=== PATIENT | female | born 1995 | race Caucasian/White ===

== ENCOUNTER 2017-03-29 10:30 | Inpatient (IN) | payer BC ==
[~2017-03-29] VITALS: Ht 162.6 cm; Wt 68.7 kg
--- NOTE | ~2017-03-29 | CON ---
PATIENT'S NAME: SAMI CAMPBELL [facility] AGE: 22 Y [address] ROOM: [place] [address] LOCATION: [facility] ADMIT DATE: 03/29/2017 Consultation DISCHARGE DATE: FAMILY PHYSICIAN: PHYSICIAN, UNKNOWN ATTENDING PHYSICIAN: Bonnie Silver REFERRING PHYSICIAN: Jorge James MD Consult for Dr. Silver. This 22-year-old young lady is referred for rehab evaluation. She is status post falling off a horse back and suffered L3 burst fracture with significant spinal canal cord stenosis and compromise. She had lumbar spine deformity at L3 with kyphosis. She did undergo on 03/30/2017 lumbar spine decompression at L3 and is now in TLSO. Alert and oriented and feels well. Rates her pain about 4-5 and sometimes she reached even lower at 3/10. Vital Signs: Blood pressure 123/68, temperature 98.5, pulse 112, respirations 20. She is 5 feet 4 inches tall and weighs 67.2 kg. She denies any loss of consciousness, no headache, and denied any shortness of breath at the present time. She saturates at room air. She takes supplemental oxygen for better saturation with nasal cannula, and she is not short of breath. Can comprehend and express without difficulty. Cranial nerves 2 through 12 are within normal limits. Can move all four, bilateral upper and lower extremities. Deep tendon reflexes are 1+ throughout. Babinski is equivocal. Muscle strength in bilateral upper is within normal limits, bilateral lower about 4/5. Sensation is within normal limits. Can control her bowel and bladder. She is on the following medications: 1. Phenergan. 2. Theravite. 3. NaCl 0.9%. 4. Dilaudid. 5. Narcan. 6. Valium. 7. Zofran. 8. Fleets. 9. Dulcolax suppository. 10. [place]. PATIENT'S NAME: SAMI CAMPBELL [facility] AGE: 22 Y [address] ROOM: [address] [address] LOCATION: [facility] ADMIT DATE: 03/29/2017 Consultation DISCHARGE DATE: FAMILY PHYSICIAN: PHYSICIAN, UNKNOWN ATTENDING PHYSICIAN: Obasi,Bonnie N 11. Lactated Ringer. She feels unsteady sometimes when up and around. Tolerated up to 50 feet of ambulation with front-wheeled walker, minimum assistance and cuing. I feel this young lady will benefit from intensive rehabilitation of about 2 weeks aiming thereafter to follow on her on an outpatient basis. She is weightbearing as tolerated per surgeon, will continue to have TEDS knee-high with Plexi-Pulses. She is at risk of falling. We will put on PT, please see the orders. I will try to get her to rehab as soon as she is okayed. All the above was explained to her in detail. She verbalized understanding, in agreement. MD MIKI CARDONA/modl /[id number] d: 03/31/172110 t: 04/01/17 0754, CONSULTATION REPORT
--- NOTE | ~2017-03-29 | DS ---
PATIENT'S NAME: SAMI CAMPBELL [facility] AGE: 22 Y [address] ROOM: [address] [address] LOCATION: [facility] ADMIT DATE: 03/29/2017 Discharge Summary DISCHARGE DATE: 04/06/2017 FAMILY PHYSICIAN: Physician, Unknown ATTENDING PHYSICIAN: Bonnie Silver REASON FOR ADMISSION: The patient is a 22-year-old female who fell off a horse and sustained a burst fracture of L3 vertebra. Neurologically, the patient had no deficits except for back pain. Imaging studies showed significant spinal compromise at the L3 level as a result of the burst fracture. TREATMENT RENDERED: The patient was taken to the operating room and underwent posterior instrumented fusion from L1-L5 as well as decompression of the spinal canal and resection of the retropulsed fragments at the L3 level. The O-arm and Stealth frameless stereotaxy were utilized for this procedure. The patient's surgery was uncomplicated. Her postoperative course was uneventful apart from expected pain. The patient did have some constipation and eventually was able to move her bowels. She had no bladder difficulty. She was well enough to go home and was discharged on April 06, 2017 with her mom to take care of her while she recovered. Her incision was healing well at the time of dismissal and her pain was controlled. FINAL DIAGNOSIS: L3 burst fracture with severe spinal canal compromise. MD REIJ SARAVIA/namrata /[id number] d: 04/27/17 0825 t: 04/27/17 1511, DISCHARGE SUMMARY
--- NOTE | ~2017-03-29 | OR ---
PATIENT'S NAME: SAMI CAMPBELL [facility] AGE: 22 Y [address] ROOM: [address] [address] LOCATION: [facility] ADMIT DATE: 03/29/2017 OR/Procedure Report DISCHARGE DATE: FAMILY PHYSICIAN: PHYSICIAN, UNKNOWN ATTENDING PHYSICIAN: Bonnie Silver SURGEON: Bonnie Silver MD HARDWARE ENGINEER: Yana Marrero. DATE OF PROCEDURE: 03/30/2017 Corrected patient account information 04/06/17 AO PREOPERATIVE DIAGNOSIS: Burst fracture of L3 vertebra with retropulsed fragment and severe cauda equina compression. POSTOPERATIVE DIAGNOSIS: Burst fracture of L3 vertebra with retropulsed fragment and severe cauda equina compression. PROCEDURES PERFORMED: 1. Laminectomy at L2-L3 with decompression of neural elements. 2. Decompression of neural elements with partial corpectomy of L3 vertebra. 3. Posterolateral fusion with morselized autograft and allograft bone from L1 to L5. 4. Instrumentation with pedicle screws at L1, L2, L4, and L5. 5. Use of frameless stereotaxy for intraoperative navigation. 6. Use of O-arm for intraoperative visualization. ANESTHESIA: General. ANESTHESIA PROVIDER: Paul Delgado MD HISTORY: This patient is a 22-year-old female who sustained an L3 burst fracture from a fall off a horse. Imaging studies showed severe spinal cord compression as a result of a retropulsed bone fragment from the L3 vertebra. The patient had no neurological deficits. Surgery was recommended. The above procedure along with benefits, risks, and alternatives were discussed with the patient and her mother. With the patient's consent, she was brought to the operating room for surgery. PROCEDURE IN DETAIL: In the operating room, the patient was placed in a supine position. Anesthesia was induced. She was intubated. She already had a Fermin catheter in place. The patient was then rolled to a prone position on a Johnathan table, taking care to protect all pressure points. The incision line was marked out in the midline of her lower back. The whole area was prepped and draped in a sterile fashion. Local anesthesia was infiltrated along the incision line. The #10 blade was used to open the incision, and self-retaining retractors were used to hold the skin open. The Bovie was used to deepen the incision until the tips of spinous processes became visible. PATIENT'S NAME: SAMI CAMPBELL [facility] AGE: 22 Y [address] ROOM: [address] [address] LOCATION: [facility] ADMIT DATE: 03/29/2017 OR/Procedure Report DISCHARGE DATE: FAMILY PHYSICIAN: PHYSICIAN, UNKNOWN ATTENDING PHYSICIAN: Bonnie Silver The paraspinous muscles were dissected off the spinous processes and laminae of L1, L2, L3, L4, and L5. The dissection continued laterally until the transverse processes of each of these vertebrae was visible. The L3 vertebra was visibly misaligned compared to the others. Intraoperative x-ray was obtained to confirm the level of the problem. This was also visible intraoperatively. Having completed the exposure, attention was directed to instrumentation. The O-arm was brought in, and an image was acquired. This image was combined with the image from the [employer] system. A 3-dimensional image of the patient's spine was then visible on the workstation. This 3-dimensional image was used for placement of the pedicle screws. The technique for placing the screws was the same for all the screws and will be described for one screw as representing the others. The entry point of the screw was verified with anatomical landmarks, i.e., the junction of the transverse process and the facet joints. This was confirmed with the frameless stereotactic system. A little commercial drone pilot hole was then drilled and then the pedicle finder was used to deepen the hole. The whole time, the trajectory was tracked using the frameless stereotactic system. Having drilled the hole, the ball-tipped probe was used to feel around the inside of the pedicle hole to ensure that it was not violated. Next, appropriate length of screw was placed inside the pedicle hole. This was done sequentially for all the pedicle screws at L1 and L2 and at L4 and L5. The L3 vertebra did not have any screws placed in it. Having completed the instrumentation, decompression was performed. Bilateral laminectomies were carried out at L2 and L3. There was a laminar fracture visible at L3. The canal was very stenotic. Upon completion of the laminectomy, the dura was still severely compressed by the retropulsed fragment. The nerve root retractor was used to pull the dura toward the midline gently, and the pieces of bone that were retropulsed were then identified using the frameless stereotactic system. These pieces of bone were drilled down on both sides to achieve further decompression. This was a partial corpectomy of the vertebra. At the end of the decompression, the dura was no longer compressed either from the retropulsed fragments or from the laminae. The bone that was harvested from the laminectomy was ground up and would subsequently be mixed with allograft bone for the posterolateral fusion. We then decorticated the transverse processes from L1 to L5 on both sides. The bone graft harvested from the laminectomy was reconstituted with demineralized bone matrix and bone chips. This mixture was placed bilaterally over the transverse processes which had been decorticated for the posterolateral fusion. PATIENT'S NAME: SAMI CAMPBELL [facility] AGE: 22 Y [address] ROOM: [id number] [place], [place] [address] LOCATION: [facility] ADMIT DATE: 03/29/2017 OR/Procedure Report DISCHARGE DATE: FAMILY PHYSICIAN: PHYSICIAN, UNKNOWN ATTENDING PHYSICIAN: Bonnie Silver Another image was obtained with the O-arm, and the screws were in very good position. Next, rods were placed over the screw heads, and set screws were used to tighten the rods inside the screws. Crosslinks were also attached. Final irrigation was performed, and hemostasis was achieved using fibrillar and cottonoids. The incision was then closed using appropriate suture materials. A sterile dressing was applied. The patient's blood, which had been harvested with a Cell Saver, was spun down and given back to her. The patient was then rolled back to supine position. Her anesthesia was reversed. She was extubated and taken to the recovery room to complete her recovery. I was present at and performed every aspect of this procedure, assisted at some stages by operating room nurses. There were no apparent intraoperative complications. Swabs, needles, and instruments were all accounted for at the end of the case. Estimated blood loss was less than a liter, and whatever blood we got, as much of it as possible was returned to the patient with a Cell Saver. I expect the patient to benefit from this procedure. She is very fortunate not to have sustained any neurological deficits from this very severe fracture. MD REJI SARAVIA/modl /[id number] Corrected patient account information 04/06/17 AO d: 04/01/171642 t: 04/14/171642, OPERATIVE SUMMARY
--- NOTE | ~2017-03-29 | HP ---
PATIENT'S NAME: SAMI CAMPBELL [facility] AGE: 22 Y [address] ROOM: [place] [address] LOCATION: [facility] ADMIT DATE: 03/29/2017 History & Physical DISCHARGE DATE: FAMILY PHYSICIAN: PHYSICIAN, UNKNOWN ATTENDING PHYSICIAN: Bonnie Silver DATE OF SERVICE: 03/29/2017 PATIENT IDENTIFICATION: Sami Campbell is a 22-year-old female. PRESENTING COMPLAINT: Fall off a horse. HISTORY OF PRESENT ILLNESS: The patient was riding a horse at a feedlot today. She says the horse bucked, and she fell off the horse. Apparently, she landed on her buttocks. She felt immediate back pain. She was able to get up and walk to the gate and ask for help. She was taken to [facility] Room. A CT scan was performed, and it showed lumbar spine fracture. The patient was, therefore, sent to in for evaluation and treatment. Currently, the patient complains of back pain, but she is able to move all her extremities. PAST MEDICAL HISTORY: The patient had tubes placed in her ears as a child. She does not have any other surgical or medical problems. 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 She does not smoke cigarettes or drink heavily. FAMILY HISTORY: No history of similar problems in family members. Her parents reside in [place]. The patient has only been up here for the last 2 weeks. REVIEW OF SYSTEMS: A 10-point review of systems was carried out. The only abnormal findings are as described in the History of Present Illness. CURRENT MEDICATIONS: None. ALLERGIES: PATIENT'S NAME: SAMI CAMPBELL [facility] AGE: 22 Y [address] ROOM: [place] [address] LOCATION: [facility] ADMIT DATE: 03/29/2017 History & Physical DISCHARGE DATE: FAMILY PHYSICIAN: PHYSICIAN, UNKNOWN ATTENDING PHYSICIAN: Bonnie Silver NONE. PHYSICAL EXAMINATION: GENERAL: The patient is a pleasant, young female who was not in any distress when I saw her. It did hurt when she tried to move. VITAL SIGNS: Pulse rate 67 and blood pressure 100/55. NEUROLOGICAL: Speech is intact. Cranial Nerves: No deficits seen. Motor Examination: The patient has full strength in her upper extremities. She also has full strength in her lower extremities, but it was quite difficult to assess the muscle groups in detail because it caused her a lot of pain. Sensation intact. Gait not tested. CARDIOVASCULAR: Heart sounds present. RESPIRATORY: The patient is not short of breath at bedside. EXTREMITIES: No cyanosis or clubbing. SKIN: No skin rashes or skin masses. REVIEW OF IMAGING STUDIES: The patient has had a CT scan performed in [place]. The CT scan shows a burst fracture at L3 with significant spinal canal compromise. There is also deformity of the lumbar spine. There is small kyphosis at the L3 level. ASSESSMENT: A 22-year-old female with L3 burst fracture secondary to a fall off a horse today. MEDICAL DECISION MAKING: The patient is admitted and is being maintained on bed rest. I have fitted her with a TLSO brace. The plan is for her to have spinal decompression, fusion, and instrumentation. This has been scheduled for March 30, 2017. I have gone over the benefits of the procedure, risks, and alternatives with the patient and her family. Consent has been obtained. I look forward to doing her surgery tomorrow. MD REJI SARAVIA/namrata /[id number] CC: Dr. Chapincito MD [place], [place] PATIENT'S NAME: SAMI CAMPBELL [facility] AGE: 22 Y [address] ROOM: [address] [address] LOCATION: [facility] ADMIT DATE: 03/29/2017 History & Physical DISCHARGE DATE: FAMILY PHYSICIAN: PHYSICIAN, UNKNOWN ATTENDING PHYSICIAN: Bonnie Silver [id number] D: [phone] T: 349 HISTORY & PHYSICAL
[2017-03-29 14:00] LABS: HEMATOCRIT 36.6 % (33.0-46.0); HEMOGLOBIN 11.9 g/dL (11.0-15.0); MCH 29.9 pg (27.0-34.0); MCHC 32.5 gm/dL (32.0-36.5); MPV 11.4 fl (9.4-12.4); PLATELET COUNT 244 K/uL (150-450); RBC 3.98 M/uL (3.50-5.00)
[2017-03-29 14:02] LABS: WBC 16.5 K/uL (4.0-11.0)
[2017-03-29 14:09] LABS: INR - (THERAPEUTIC) 0.95 (0.92-1.07); PTT 23 SECONDS (25-32)
[2017-03-29 14:18] LABS: ALBUMIN 3.5 gm/dL (3.5-5.0); ALK PHOS 55 IU/L (33-138); ALT 40 IU/L (12-78); ANION GAP 14.2 (10.0-19.0); AST 83 IU/L (10-40); BLOOD UREA NITROGEN 13 mg/dL (6-24); CHLORIDE 106 mMol/L (96-110); CO2 24 mMol/L (22-32); CREATININE 0.7 mg/dL (0.5-1.1); ESTIMATED GFR (MDRD EQUATION) > 60; POTASSIUM 4.2 mMol/L (3.7-5.1); SODIUM 140 mMol/L (135-145); TOTAL BILIRUBIN 0.4 mg/dL (0.0-1.5); TOTAL PROTEIN 7.6 g/dL (6.0-8.4)
[2017-03-29 14:26] LABS: ABSOLUTE NEUTROPHIL CT (ANC) 14.7 K/uL (1.8-7.8); BANDED NEUTROPHIL # 0.8 K/uL (0.0-0.1); BANDED NEUTROPHILS % 5 %; LYMPHOCYTE # 1.5 K/uL (0.8-4.0); LYMPHOCYTE % 9 %; MONOCYTE # 0.3 K/uL (0.0-1.0); SEGMENTED NEUTROPHIL # 13.9 K/uL (1.8-7.8); SEGMENTED NEUTROPHIL % 84 %
[2017-03-29] MEDS ORDERED: ALLEGRA180 MG PO (15:44)
[2017-03-29] MEDS ORDERED: THERA-VITE W/ B1 TAB PO (15:44)
[2017-03-29] MEDS ORDERED: LORYNA 3 MG-0.1 EACH (15:45)
--- NOTE | 2017-03-29 17:10 | NUR ---
Pt admitted per air transfer from [place] at 1045. She was bucked off a horse and sustained L3 fracture. She will go to OR tomorrow around 0530 AM for repair. She is alert oriented, no deficit. She is to remain on bedrest, log roll only and HOB only 10 degrees. TLSO brace is on. She has normal sensation legs with good pedal pulses, good dorsal and plantar flexion, good sensation to touch and denies numbness or tingling. Uses arms well, strong grasps. States she didn't hit her head. Pt has walker catheter in place and saline lock left wrist. She had morphine x1 and zofran x1 and norco at 1415. Pain now rated at 4 in low back. Emesis 500 ml earlier and now denies nausea. Ate lunch since then. Friend is here at this time and her mother is coming early childhood associate from out of state. Leg pumps on. VS stable. NPO after midnight for OR.
--- NOTE | 2017-03-29 17:36 | NUR ---
Pt will have an MRI of lumbar spine this gordy. Paperwork done
--- NOTE | 2017-03-30 04:48 | NUR ---
Significant Event: The patient is Alert and Oriented x3. Denies Numbness and Tingling. Moves all extremities spontaneously and to command. Strict Bedrest. HOB up no more than 10 degrees. TLSO on at all times. VSS. On room air. PIV to the Left wrist. Fermin draining yellow urine. Pain to lower back, gave Winger last at 2335, and Morphine last at 0357. NPO since midnight for surgery today. Follow up:
--- NOTE | 2017-03-30 16:15 | NUR ---
Significant Event:PT IS AAOX3. NO C/O NUMBNESS OR TINGLING. MODERATE TO STRONG STRENGTH THROUGHOUT. DRSG TO BACK CLEAN DRY AND INTACT. DILAUDID DEV OPS ENGINEER. ON RA. ETCO2 MONITORING ON. BLISS DRAINING YELLOW URINE. MOTHER AT BEDSIDE. GAVE ZOFRAN FOR NAUSEA. SOME RELIEF NOTED. RETURNED FROM PACU AT 1448 Follow up:
--- NOTE | 2017-03-31 02:18 | NUR ---
Significant Event: A/Ox3. Follows all commands and able to move all extremities. Denies numbness/tingling. 2A for transfers with TLSO brace. Will remove walker this morning at approximately 0400. Dilaudid BANQUET SUPERVISOR on demand and NS running. Denies nausea throughout shift. Dressing to back c/d/i. Mother remains at bedside. Removed IJ tonight and dressing c/d/i. Follow up:
--- NOTE | 2017-03-31 13:18 | NUR ---
Introduced self and role of care management to patient and her mother. She lives in [facility]. 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 She normally is able to do all her own ADL's. She is currently wear a TLSO. She is hoping to be able to finish her integration consultant before returning to [place]. Both her and her mother deny needs at this time. Will continue to follow.
--- NOTE | 2017-03-31 13:52 | NUR ---
Significant Event:PT IS AAOX3. NO C/O NUMBNESS OR TINGLING. MODERATE STRENGTH THROUGHOUT. CLEAR LUNG SOUNDS. ACTIVE BS. IV R) HAND/WRIST SL'D. GYMNASIUM TEACHER OFF AT 1330. NORCO AND VALIUM FOR PAIN. RELIEF NOTED. DRSG TO BACK INTACT. UP IN [place] WITH GB WALKER. 1-2 ASSIST. TLSO ON WHEN UP. Follow up:MONITOR PAIN.
[2017-03-31 20:38] LABS: BASOPHIL % 0.1 %; EOSINOPHIL % 0.1 %; HEMOGLOBIN 9.3 g/dL (11.0-15.0); IMMATURE GRANULOCYTE # 0.1 K/uL (0.0-0.3); IMMATURE GRANULOCYTE % 0.3 %; LYMPHOCYTE % 12.7 %; MCH 29.7 pg (27.0-34.0); MCV 92.7 fl (83.0-98.0); MONOCYTE # 0.8 K/uL (0.0-1.0); MONOCYTE % 5.2 %; MPV 11.4 fl (9.4-12.4); NEUTROPHIL # (ANC) 12.8 K/uL (1.8-7.8); NEUTROPHIL % 81.6 %; NRBC % 0 /100WBC (0-0.00); RBC 3.13 M/uL (3.50-5.00); RDW-CV 13.2 % (11.9-14.6); WBC 15.7 K/uL (4.0-11.0)
[2017-03-31 20:47] LABS: MCHC 32.1 gm/dL (32.0-36.5); PLATELET COUNT 187 K/uL (150-450)
[2017-03-31 20:54] LABS: ANION GAP 10.8 (10.0-19.0); BLOOD UREA NITROGEN 4 mg/dL (6-24); CALCIUM 7.7 mg/dL (8.5-10.5); CHLORIDE 105 mMol/L (96-110); CO2 25 mMol/L (22-32); CREATININE 0.5 mg/dL (0.5-1.1); ESTIMATED GFR (MDRD EQUATION) > 60; POTASSIUM 3.8 mMol/L (3.7-5.1); SODIUM 137 mMol/L (135-145)
--- NOTE | 2017-04-01 03:27 | NUR ---
Significant Event: AAOx3, denies N/T. Equal moderate strength throughout. PERRLA 3mm brisk. Dressing to lumbar back scant serosangeiounous drainage otherwise intact without redness surrounding. Systolic 110-120's, HR 90-110's, O'Basi is aware. Highest temperature 99.6, stressed I.S. usage when awake, highest recording 750. L.S. clear and diminished in lower lobes on RA. B.S. hypoactive, slightly firm abdomen, reports belching but no flatus at this time, last BM 03/28 gave MoM, Miralax, Colace and prune juice. Ambulates 1PA walker/GB, TLSO brace on when up. Urinates per BR. PIV R) forearm SL'd. Regular diet. Follow up: Plan for possible dismissal home Wednesday, stress I.S. usage and TC&DB, monitor WBC. Rates pain 5-6/10 to lumbar back gave [place] Q4Hrs and Valium 5mg Q8Hrs; relief noted.
--- NOTE | 2017-04-01 12:47 | NUR ---
Social visit with patients mother today. She had questions on the process of Filling And Packing Supervisor getting to inpatient rehab. I explained that Bonny BRIDGES on GIRP was starting the precert and as soon as we heard back from insurance I would let her know. I did give her the phone number for [facility] so she could check with them incase they needed any additonal information. Will continue to follow.
--- NOTE | 2017-04-01 17:01 | NUR ---
Significant Event:PT IS AAOX3. NO C/O NUMBNESS AND TINGLING. GAVE FLEETS ENEMA TODAY DID HAVE MODERATE HARD STOOL. STILL HAVING TENDERNESS TO ABDOMEN. CLEAR TO CLEAR AND DIMINISHED LUNG SOUNDS. DRSG TO LUMBAR INTACT. 1A GB WALKER. TLSO ON WHEN AMBULATING. R) HAND IV SL'D. NORCO LAST AT 0839. VALIUM LAST AT 1221. Follow up:PATIENT AND MOTHER WANT REHAB
--- NOTE | 2017-04-02 04:51 | NUR ---
Significant Event: The patient is Alert and Oriented x3. Denies Numbness and Tingling. Moves all extremities spontaneously and to command. Up with 1A, gaitbelt and walker. VSS, tachycardic-MD aware. On room air. TLSO brace on when up. PIV to the Right Wrist Saline locked. Dressing to the lower back C/D/I. Pain to her lower back gave [place] at 2132, and Valium at 0045. The patient was feeling constipated, gave a total of 1 Bottle of Mag Citrate this shift, with no Result yet. Follow up:
--- NOTE | 2017-04-02 13:41 | NUR ---
Significant Event: VSS, EXCEPT DOES RUN TACHYCARDIC 100-120'S AT TIMES. A/O X 3. FOLLOWS COMMANDS. MODERATE STRENGTH, DENIES NUMBNESS/TINGLING. LUNGS CLEAR AND DIM ON ROOM AIR. UP WITH 1 ASSIST AND WALKER. DOES NOT NEED TO WEAR TLSO, MAY FOR COMFORT THOUGHT. DRESSING TO BACK CHANGED PER DR ASHLEY, MEPILEX ON NOW. IV IN RT WRIST SALINE LOCKED. DID HAVE MULTIPLE BM'S TODAY, SO FEELING MUCH BETTER. PAIN TOLERABLE WITH PRN NORCO. Follow up: PAIN CONTROL. REHAB WEDNESDAY.
--- NOTE | 2017-04-03 04:37 | NUR ---
Significant Event: A/OX3. DENIES NUMBNESS AND TINGLING. MOVES ALL EXTREMITIES SPONTANEOUSLY AND TO COMMAND. MODERATE STRENGTH. SBP IN 110S-120S. TACHYCARDIC IN THE 100S. AFEBRILE. LUNGS CLEAR AND DIM ON ROOM AIR. UP 1 ASSIST GAIT BELT AND WALKER. DOES NOT NEED TO WEAR TLSO. DRESSING TO BACK C/D/I. IV TO RT WRIST SALINE LOCKED. X1 LARGE BM THIS SHIFT. NORCO GIVEN Q4 HOURS - LAST AT 0330. Follow up: REHAB WEDNESDAY.
--- NOTE | 2017-04-03 11:16 | NUR ---
A-SCREENED D/T LOS S/P L3 FX FROM BEING BUCKED OFF A HORSE; PLAN TO TRANSFER TO [facility] ON 04/05 HT: 64 IN. WT: 68.7 KG BMI: 25.9 LABS: NA 137, K+ 3.8, GLU 131, BUN 4, SECURITY FLEX OFFICER 0.5, ALB 3.5 MEDS: COLACE, PRN BOWEL MEDS, PHENERGAN, MVI, DILAUDID, NARCAN, VALIUM, ZOFRAN DIET RX: REGULAR. PO INTAKE 50-100%; AVG IS 75% EST NUTR NEEDS: [id number] KCALS (25-30 KCALS/KG) 55-76 GM PROTEIN (0.8-1.1 GM/KG) 1 ML FLUID/KCAL D-NOT AT NUTRITION RISK; NO NUTRITION DX IDENTIFIED I-CONTINUE W/CURRENT DIET RX M/E-WILL ASSIST NEEDED
--- NOTE | 2017-04-03 17:45 | NUR ---
Significant Event: Patient is A&O x3. Follows commands. Equal strength in all extremities. Denies numbness & tingling. VSS but heart rate is tachy and has been that way since admit. Complains of pain to her back & I gave her 2 [place] last @ 1707 with relief noted. TLSO on for patient comfort. Dressing to back that is C/D/I. Back is swollen and reddened towards the bottom. Up with 1 assist, gait belt, & walker. IV to R) wrist SL. Follow up: Plan for GIRP Wednesday if insurance approves.
--- NOTE | 2017-04-04 04:03 | NUR ---
Significant Event: The patient is Alert and Oriented x3. Denies Numbness and Tingling. Moves all Extremities spontaneously and to command. Up with 1 assist, gaitbelt and walker. TLSO on prn. Pain to the lower back, gave [place] last at 0339. VSS. On room air. PIV discontinued on my last assessment, the patient refused a new one. Dressing to her lower back C/D/I. Ice pack applied to area. Follow up:
--- NOTE | 2017-04-04 11:28 | NUR ---
OT attempted to see. Pt with PT. OT will attempt next date as appropriate. eH Jensen, OTR/L
--- NOTE | 2017-04-04 17:50 | NUR ---
Significant Event: Patient is A&O x3. Follows commands. Equal strength in all extremities. Denies numbness & tingling. VSS. Complains of pain to her back & last gave her 2 Cru[place] @ 1745. No IV access. Dressing to back C/D/I. Issues with constipation and gave her a 1/2 bottle mag citrate with no relief so far. Passing flatus. Up with 1 assist, gait belt, and walker. TLSO on for comfort only. Mother at bedside. Cooperative with cares. Follow up: ? GIRP tomorrow, waiting on insurance okay.
--- NOTE | 2017-04-05 04:41 | NUR ---
Significant Event: The patient is Alert and Oriented x3. Denies Numbness and Tingling. Moves all extremities spontaneously and to command. Up with 1 assist gaitbelt and walker. Pain to her Lower back, [place] given last at 0305. Dressing to the Lower back is C/D/I. VSS. On room air. No IV access. Large BM this shift. TLSO per patient request. Follow up: ?GIRP
--- NOTE | 2017-04-05 10:30 | NUR ---
Received call from Bonny on GIR. She states that she had received a denial for GIR on Wednesday and called and let patients nurse know about denial. I did call and get the phone number for the appeal. I called and gave Dr Silver the phone number to appeal ([phone]). Will wait to hear from Dr Silver.
--- NOTE | 2017-04-05 16:38 | NUR ---
Significant Event:Patient is alert and oriented times three. PERRLA. CSM intact. Equal strength, no numbness or tingling noted. Lungs clear throughout. VSS on room air. Telemetry dc'd this shift. Bowel sounds active, bm times 2 this shift. Patient voids per the bathroom independently with either cane or walker. TLSO brace as needed per patient comfort. Mepilex dressing is clean dry and intact to patients lower back. [place] given for pain with relief noted. Patient takes medications whole with water. No IV access. Regular diet. Follow up:Discharge plan.
--- NOTE | 2017-04-06 04:41 | NUR ---
Significant Event: Patient is A&OX3. Denies N&T. Vitals Q shift. No IV access. No tele. Up independent in room with mom. Up SBA with gaitbelt and walker. Pt moves stiff. RA lungs clear. Regular diet. Last BM 04/05. Has meplex drst to lower back c/d/i. [place] given for pain. TLSO brace can be on for comfort. Follow up: Home today
--- NOTE | 2017-04-06 14:54 | NUR ---
Social visit with Ying and her mom. Explained to them that at this time GIRP wouldn't be approved by her insurance but did call in to request an appeal, but to my knowledge had not got a call back from them. Mom tells me that they are fine with Ying just going home with outpatient therapies as soon as rounds. We went over DME that she might need upon dismissal and therapies left a note on the chart requesting scripts for each item as well. Jeb' mom tells me that she will probably just get her DME from [facility] so scripts probably won't be needed but she will take them anyways. Her and Ying are staying here in [place] for a couple of days with a friend and then Ying plans to return back to [place] after the weekend and do outpatient therapies there. I also explained to them that per JUSTIN Silva, Jeb' insurance has authorized days 03/29-04/01, but denied from 04/01 on. JUSTIN Silva sent in an update to them and will update Jeb' mom once she hears back from insurance. Ying and mom requested a CD of all of her MRIs and Xrays that she has had while here with us. That CD was obtained and will be given to her when she dismisses. Ying and her mom denied any other questions, needs or concerns at this time. Plan for dismissal to home with outpatient therapies later today once rounds and gives the final ok. CM to continue to follow and assist.
--- NOTE | 2017-04-06 17:42 | NUR ---
Significant Event:A/O x 3, cooperative with cares. VSS. UP with SBA assist, tolerates well. TLSO on for comfort. NO IV access. [place] two tabs given x2 last at 1330. Good pain relief. Follow up:Waiting for DC from [facility].
[2017-04-06] MEDS ORDERED: NORCO 10-325 T1 EACH PO (19:54)
--- NOTE | 2017-04-06 21:11 | NUR ---
Significant Event: The patient is Alert and Oriented x3. Denies Numbness and Tingling. Moves all extremities spontaneously and to command. Up with SBA. VSS. On room air. Discharged at 2026 with mother by private vehicle. Discharge prescriptions and instructions explained and given to the patient and mother. Belonging taken with the patient upon discharge. Follow up:
== END 2017-04-06 20:27 | disposition disaster alternative care site (69) | DRG 460 ==
LOC: GNTU 10:42
PROVIDERS: ADMIT Neurological Surgery
PROC: 30233H0 Transfusion of Autologous Whole Blood into Peripheral Vein, Percutaneous Approach (ICD-10-PCS; principal; 2017-03-30)
PROC: 01NB0ZZ Release Lumbar Nerve, Open Approach (ICD-10-PCS; principal; 2017-03-30)
PROC: 0SG1071 Fusion of 2 or more Lumbar Vertebral Joints with Autologous Tissue Substitute, Posterior Approach, Posterior Column, Open Approach (ICD-10-PCS; principal; 2017-03-30)
DX: S32.031A Stable burst fracture of third lumbar vertebra, initial encounter for closed fracture (principal); G83.4 Cauda equina syndrome; E86.1 Hypovolemia; V80.010A Animal-rider injured by fall from or being thrown from horse in noncollision accident, initial encounter; M43.8X6 Other specified deforming dorsopathies, lumbar region; K59.00 Constipation, unspecified
CPT/HCPCS: C1713; J0690; J1100; J1170; J2001; J2250; J2270; J2405; J3010; J7030

== ENCOUNTER → 2017-03-29 | Outpatient (CLI) | payer BC ==
[~2017-03-29] MED LIST: ALLEGRA180 MG PO; LORYNA 3 MG-0.1 EACH; NORCO 10-325 T1 EACH PO; THERA-VITE W/ B1 TAB PO
== END | disposition disaster alternative care site (69) ==
LOC: GAIR 10:10
DX: S39.92XA Unspecified injury of lower back, initial encounter (principal); M54.5 Low back pain; S32.039A Unspecified fracture of third lumbar vertebra, initial encounter for closed fracture; W19.XXXA Unspecified fall, initial encounter
CPT/HCPCS: A0422; A0431; A0436